=== PATIENT | female | born 2000 | race African-American/Black ===

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

== ENCOUNTER 2019-02-22 06:11 | Emergency (ER) | payer SELFPAY ==
[~2019-02-22] VITALS: Ht 162.6 cm; Wt 65.3 kg
[~2019-02-22 06:11] MED LIST changes: +HYOS0.1264 PO; +METO10TA81 PO
[2019-02-22 06:35] VITALS: BP 118/72
[2019-02-22 07:26] LABS: BILIRUBIN,URINE NEGATIVE (NEG); CLARITY,URINE CLOUDY; COLOR,URINE AMBER; NITRITE,URINE NEGATIVE (NEG); PH,URINE 5.5; PROTEIN,URINE 30 mg/dL (NEG-TRACE); UROBILINOGEN,URINE 0.2 mg/dL (0.2 mg/dL)
[2019-02-22 07:40] LABS: BACTERIA,URINE MODERATE /HPF (0-FEW); SQUAMOUS EPITHELIAL CELL,UR MANY /LPF; WBC,URINE 20-40 /HPF (0-4)
--- NOTE | 2019-02-22 07:50 | PHYS DOC ---
Past Medical History Past Medical History: Asthma Past Surgical History: No Surgical History Additional Information: Denies a smoking Alcohol Use: None Drug Use: Marijuana Adult General Chief Complaint Chief Complaint: BACK PAIN - NO INJURY [facility] HPI Patient is a 18 year old female who presents with complaining of back pain. Patient complaining of sudden onset of bilateral upper abdominal pain with radiation to upper and lower back since yesterday as a constant aching pain with episodes of sharp pain and rated her pain 10 /10. She complaining of subjective fever states she is feeling hot at time of evaluation. Patient denies nausea and vomiting, urinary symptoms, vaginal bleeding or discharge. Patient states her LMP was January 25 and she is not using any contraception. Patient states she took [id number] pain medication without improvement of her pain. Review of Systems Review of Systems Constitutional: Denies chills [] Eyes: Denies change in visual acuity, redness, or eye pain [] HENT: Denies nasal congestion or sore throat [] Respiratory: Denies cough or shortness of breath [] Cardiovascular: No additional information not addressed in HPI [] GI: Denies abdominal pain, nausea, vomiting, bloody stools or diarrhea [] : Denies dysuria or hematuria [] Musculoskeletal: Reports back pain Integument: Denies rash or skin lesions [] Neurologic: Denies headache, focal weakness or sensory changes [] Endocrine: Denies polyuria or polydipsia [] All other systems were reviewed and found to be within normal limits, except as documented in this note. Allergies Allergies Allergies Coded Allergies Type Severity Reaction Last Updated Verified No Known Drug Allergies 10/25/14 No Physical Exam Physical Exam Constitutional: Well developed, well nourished, mild distress, non-toxic appearance. [] HENT: Normocephalic, atraumatic, oropharynx moist. Eyes: PERRLA, EOMI, conjunctiva normal, no discharge. [] Neck: Normal range of motion, no tenderness, supple, no stridor. [] Cardiovascular:Heart rate regular rhythm, no murmur [] Lungs & Thorax: Bilateral breath sounds clear to auscultation [] Abdomen: Bowel sounds normal, soft, no tenderness, no masses, no pulsatile masses. [] Skin: Warm, dry, no erythema, no rash. [] Back: No tenderness, no CVA tenderness. [] Extremities: No tenderness, no cyanosis, no clubbing, ROM intact, no edema. [] Neurologic: Alert and oriented X 3, normal motor function, normal sensory function, no focal deficits noted. [] Psychologic: Affect anxious, judgement normal, mood normal. [] Current Patient Data Vital Signs Vital Signs Date Time Temp Pulse Resp B/P (MAP) Pulse Ox O2 Delivery O2 Flow Rate FiO2 02/22/19 06:35 98.1 99 18 118/72 (87) 99 Room Air 98.1 Lab Values Laboratory Tests Test 02/22/19 06:35 02/22/19 06:45 Urine Collection Type Unknown Urine Color Juliana Urine Clarity Cloudy Urine pH 5.5 Urine Specific [place] >=1.030 Urine Protein 30 mg/dL (NEG-TRACE) Urine Glucose (UA) Negative mg/dL (NEG) Urine Ketones (Stick) 15 mg/dL (NEG) Urine Blood Negative (NEG) Urine Nitrite Negative (NEG) Urine Bilirubin Negative (NEG) Urine Urobilinogen Dipstick 0.2 mg/dL (0.2 mg/dL) Urine Leukocyte Esterase Moderate (NEG) Urine RBC 3-5 /HPF (0-2) Urine WBC 20-40 /HPF (0-4) Urine Squamous Epithelial Cells Many /LPF Urine Bacteria Moderate /HPF (0-FEW) Urine Mucus Marked /LPF POC Urine HCG, Qualitative Hcg positive (Negative) EKG EKG [] Radiology/Procedures Radiology/Procedures [] Course & Med Decision Making Course & Med Decision Making Pertinent Labs reviewed. (See chart for details) Evaluation of patient in ER showed 18-year-old female patient with complaining of upper and lower back pain since yesterday. Patient had unremarkable physical exam except for mild anxiety. Urine test was positive and patient informed about the test result. After having the UA result, I was going to discuss the test result about UTI during but patient was already eloped. Dragon Disclaimer Dragon Disclaimer This electronic medical record was generated, in whole or in part, using a voice recognition dictation system. Departure Departure Impression: Primary Impression: Currently Additional Impressions: UTI (urinary tract infection) during Eloped from emergency department Disposition: 07 AGAINST MEDICAL ADVICE (At 0748) Condition: STABLE Referrals: NO PCP (PCP) Problem Qualifiers CHIQUITA NICOLAS MD Feb 22, 2019 07:50
== END 2019-02-22 07:50 | disposition left against medical advice (07) ==
LOC: ER 06:11
DX: O23.41 Unspecified infection of urinary tract in pregnancy, first trimester (principal); O99.511 Diseases of the respiratory system complicating pregnancy, first trimester; R10.11 Right upper quadrant pain; R10.12 Left upper quadrant pain; Z3A.01 Less than 8 weeks gestation of pregnancy
CPT/HCPCS: 81001; 81025; 87086; 99283

== ENCOUNTER 2019-03-04 07:08 | Emergency (ER) | payer OTHER ==
[~2019-03-04] VITALS: Ht 162.6 cm; Wt 65.3 kg
[2019-03-04] VITALS (10 sets, daily range): BP systolic 97–116; BP diastolic 48–78
[2019-03-04 07:45] LABS: BASO % 1 % (0-3); EOS # 0.3 x10^3/uL (0.0-0.7); EOS % 4 % (0-3); HEMATOCRIT 34.8 % (36.0-47.0); HEMOGLOBIN 11.6 g/dL (12.0-15.5); LYMPH # 2.6 x10^3/uL (1.0-4.8); LYMPH % 34 % (24-48); MEAN CORPUSCULAR HEMOGLOBIN 31 pg (25-35); MEAN CORPUSCULAR HGB CONC 33 g/dL (31-37); MEAN CORPUSCULAR VOLUME 94 fL (79-100); MONO # 0.4 x10^3/uL (0.0-1.1); MONO % 6 % (0-9); NEUT # 4.3 x10^3uL (1.8-7.7); NEUT % 57 % (31-73); PLATELET COUNT 237 x10^3/uL (140-400); RED BLOOD COUNT 3.71 x10^6/uL (3.50-5.40); RED CELL DISTRIBUTION WIDTH 13.6 % (11.5-14.5); WHITE BLOOD COUNT 7.6 x10^3/uL (4.0-11.0)
--- NOTE | 2019-03-04 07:45 | PHYS DOC ---
Past Medical History Past Medical History: Asthma Past Surgical History: No Surgical History Alcohol Use: None Drug Use: Marijuana Adult General Chief Complaint Chief Complaint: ABDOMINAL PAIN IN HPI HPI 18-year-old female who is 5 weeks by last menstrual period presenting to the emergency department today with abdominal pain and . Her pain is a sharp shooting pain in the suprapubic region that is nonradiating intermittent and without alleviating factors. She was seen previously here in the emergency department where she had positive leuk esterase negative nitrites presumably at that time a UTI however unfortunately eloped and did not get antibiotic therapy. Her urine was cultured at that time which showed mixed urogenital species without a defined UTI. Review of systems is negative for chest pain shortness of breath. She's had mild nausea without vomiting. She had one episode of spotting within the past 24 hours. All other review of systems is negative unless otherwise noted in history of present illness. ED course: 18-year-old female presenting the emergency department today with abdominal pain with spotting in . Review of Systems Review of Systems SEE ABOVE. Allergies Allergies Allergies Coded Allergies Type Severity Reaction Last Updated Verified No Known Drug Allergies 10/25/14 No Physical Exam Physical Exam SEE ABOVE Constitutional: Well developed, well nourished, no acute distress, non-toxic appearance. HENT: Normocephalic, atraumatic, bilateral external ears normal, oropharynx moist, no oral exudates, nose normal. [] Eyes: PERRLA, EOMI, conjunctiva normal, no discharge. Neck: Normal range of motion, no tenderness, supple, no stridor. [] Cardiovascular:Heart rate regular rhythm, no murmur Lungs & Thorax: Bilateral breath sounds clear to auscultation [] Abdomen: Bowel sounds normal, soft, mild ttp in the suprapubic region. neg mcburneys point. neg murphys sign. no masses, no pulsatile masses. [] Skin: Warm, dry, no erythema, no rash. Back: No tenderness, no CVA tenderness. [] Extremities: No tenderness, no cyanosis, no clubbing, ROM intact, no edema. Neurologic: Alert and oriented X 3, normal motor function, normal sensory function, no focal deficits noted. [] Psychologic: Affect normal, judgement normal, mood normal. [] EKG EKG [] Radiology/Procedures Radiology/Procedures [] Course & Med Decision Making Course & Med Decision Making Pertinent Labs and Imaging studies reviewed. (See chart for details) [] Dragon Disclaimer Dragon Disclaimer This electronic medical record was generated, in whole or in part, using a voice recognition dictation system. Departure Departure Impression: Primary Impression: Abdominal pain affecting Referrals: NO PCP (PCP) FILEMON PALENCIA MD Mar 04, 2019 07:45
[2019-03-04 07:53] LABS: CALCIUM 8.7 mg/dL (8.5-10.1); CREATININE 0.9 mg/dL (0.6-1.0); GFR 97.6; POTASSIUM 3.3 mmol/L (3.5-5.1)
[2019-03-04 08:09] LABS: ALBUMIN 3.5 g/dL (3.4-5.0); DIRECT BILIRUBIN 0.1 mg/dL (0.0-0.2); TOTAL BILIRUBIN 0.3 mg/dL (0.2-1.0); TOTAL PROTEIN 6.7 g/dL (6.4-8.2)
--- NOTE | 2019-03-04 09:11 | RAD ---
Obstetrical ultrasound, 03/04/2019: HISTORY: , abdominal pain Transabdominal and transvaginal scans were obtained. The transabdominal scans are of limited value due to lack of bladder distention. The transvaginal scans demonstrate and elongated fluid collection in the central uterine cavity demonstrating a weakly echogenic rim. It measures 8 mm in mean diameter suggesting a gestational age of 5-6 weeks. No pole or yolk sac is seen within this structure. There is an adjacent small hypoechoic structure compatible with a small subchorionic hemorrhage. The ovaries are of normal size. A 1.9 cm slightly hypoechoic structure in the right ovary most likely represents a hemorrhagic cyst. The adnexal regions are otherwise unremarkable. No free fluid is evident in the pelvis. IMPRESSION: 1. Small fluid collections in the central uterine cavity, one of which is probably a gestational sac. It is elongated with a weekly echogenic rim raising questions as to its viability. The other small fluid collection is compatible with a small subchorionic hemorrhage. Correlation with serial hCG titers and sonographic follow-up is suggested in establishing viability of this . 2. Small right ovarian nodule, likely a hemorrhagic cyst. Electronically signed by: Cooper Cheung MD (03/04/2019 9:08 AM) [facility]
[2019-03-04 09:22] LABS: CLARITY,URINE CLOUDY; COLOR,URINE AMBER
[2019-03-04 09:23] LABS: BILIRUBIN,URINE SMALL (NEG)
[2019-03-04 09:26] LABS: NITRITE,URINE NEGATIVE (NEG)
[2019-03-04 09:29] LABS: PROTEIN,URINE 30 mg/dL (NEG-TRACE)
[2019-03-04] MEDS ORDERED: IV NORMAL SALINE 1000ML BAG 1,000 ML IV SCH (09:29)
[2019-03-04] MEDS ORDERED: MORPHINE SULFATE 2 MG/ML VIAL. IV PRN ×2 (09:30→11:00)
[2019-03-04] MEDS ORDERED: ONDANSETRON PF 4 MG/2 ML VIAL. IV PRN ×3 (09:30→12:30)
[2019-03-04] MEDS ORDERED: SURGICEL HEMOSTAT 4X8 EACH. ONE (10:15)
[2019-03-04] MEDS ORDERED: BUPIVACAINE-EPI 0.25%-1:200000 MPF 30 ML VIAL. ONE (10:15)
[2019-03-04] MEDS ORDERED: IV RINGERS,LACTATED 1000ML 1,000 ML IV SCH (10:56)
[2019-03-04] MEDS ORDERED: fentaNYL PF VIAL 100 MCG/2 ML VIAL IV PRN ×2 (11:00)
[2019-03-04] MEDS ORDERED: PROCHLORPERAZINE 10 MG/2 ML VIAL. IV PRN ×2 (11:00→12:30)
[2019-03-04] MEDS ORDERED: LIDOCAINE 1% PF 2 ML VIAL. ID PRN (11:00)
[2019-03-04] MEDS ORDERED: HYDROmorphone 2 MG/ML VIAL IV PRN (11:00)
[2019-03-04] MEDS ORDERED: PROPOFOL 20 ML IV ONE (11:05)
[2019-03-04] MEDS ORDERED: DEXAMETHASONE SOD PHOS 20 MG/5 ML VIAL. ONE (11:05)
[2019-03-04] MEDS ORDERED: FAMOTIDINE 20 MG/2 ML VIAL ONE (11:05)
[2019-03-04] MEDS ORDERED: LIDOCAINE 2% PF 5 ML VIAL. ONE (11:05)
[2019-03-04] MEDS ORDERED: ONDANSETRON PF 4 MG/2 ML VIAL. ONE (11:05)
[2019-03-04] MEDS ORDERED: MIDAZOLAM HCL/PF 2 MG/2 ML VIAL. ONE (11:07)
[2019-03-04] MEDS ORDERED: fentaNYL PF VIAL 100 MCG/2 ML VIAL ONE (11:07)
[2019-03-04] MEDS ORDERED: SUCCINYLCHOLINE 200 MG/10 ML VIAL. ONE (11:07)
[2019-03-04] MEDS ORDERED: ROCURONIUM 50 MG/5 ML VIAL. ONE (11:08)
[2019-03-04] MEDS ORDERED: 0.9 % SODIUM CHLORIDE 20 ML VIAL. IJ ONE (11:44)
[2019-03-04] MEDS ORDERED: ceFAZolin SODIUM 1 GM VIAL ONE (11:44)
[2019-03-04] MEDS ORDERED: KETOROLAC 30 MG/ML INJ FOR OR. INJ ONE (12:11)
[2019-03-04] MEDS ORDERED: NEOSTIGMINE METHYLSULFATE 5 MG/5 ML SYRINGE. ONE (12:12)
[2019-03-04] MEDS ORDERED: GLYCOPYRROLATE 1 MG/5 ML VIAL. ONE (12:12)
[2019-03-04] MEDS ORDERED: SEVOFLURANE 61 TO 120 MINUTES. IH ONE (12:14)
[2019-03-04] MEDS ORDERED: BUPIVACAINE-EPI 0.25%-1:200000 MPF 30 ML VIAL. IJ ONE (12:15)
--- NOTE | 2019-03-04 12:23 | PDOC ---
BRIEF OPERATIVE NOTE Date: Mar 04, 2019 Pre-Op Diagnosis Abd pain and ectopic Post-Op Diagnosis SAme Procedure Performed Dx [facility] Surgeon Dr. Daniels Anesthesia Type: General Blood Loss less than 5 ml Specimens Obtained none Findings enlarged uterus, ROV cyst 3 cm size; nml fallopian tubes carlos., nml MADELEINE; nml appendix and nml gallbladder; Complications none Operative Note see dictation YULISA DANIELS Jr, MD Mar 04, 2019 12:23
[2019-03-04] MEDS ORDERED: diphenhydrAMINE 50 MG/ML VIAL IV PRN (12:30)
[2019-03-04] MEDS ORDERED: ZOLPIDEM 5 MG TABLET. PO PRN (12:30)
[2019-03-04] MEDS ORDERED: KETOROLAC 30 MG/ML VIAL. IV PRN (12:30)
[2019-03-04] MEDS ORDERED: CALCIUM CARBONATE 500 MG TAB.CHEW PO PRN (12:30)
[2019-03-04] MEDS ORDERED: 0.9 % SODIUM CHLORIDE 10 ML DISP.SYRIN. IV PRN (12:30)
[2019-03-04] MEDS ORDERED: DEXTROSE 50% 25 GM / 50ML DISP.SYRIN. IV PRN (12:30)
[2019-03-04] MEDS ORDERED: diphenhydrAMINE HCL 25 MG CAPSULE PO PRN (12:30)
--- NOTE | 2019-03-04 12:47 | PDOC1 ---
History and Physical Date of Admission Date of Admission DATE: 03/04/19 TIME: 12:40 Identification/Chief Complaint Chief Complaint Abd pain Source Source: Patient History of Present Illness History of Present Illness 18 y/o @ 6 wks with increasing RLQ pain since this am. Today's HCG 8, 600. Sono indicated Right adnexal nodule with free fluid in pelvis. Pt.'s clinical exam indicated ectopic . Past Surgical History Past Surgical History: No pertinent history Current Problem List Problem List Problems Medical Problems: (1) Abdominal pain affecting Status: Acute Current Medications Current Medications Current Medications Ondansetron HCl (Zofran) 4 mg PRN Q8HRS PRN IV NAUSEA/VOMITING Last administered on 03/04/19at 10:10; Start 03/04/19 at 09:30; Stop 03/05/19 at 09:29 Morphine Sulfate (Morphine Sulfate) 2 mg PRN Q2HR PRN IV PAIN Last administered on 03/04/19at 10:10; Start 03/04/19 at 09:30; Stop 03/05/19 at 09:29 Sodium Chloride 1,000 ml @ 125 mls/hr Q8H IV Last administered on 03/04/19at 10 :10; Start 03/04/19 at 09:29; Stop 03/05/19 at 09:28 Ondansetron HCl (Zofran) 4 mg PRN Q6HRS PRN IV NAUSEA/VOMITING; Start 03/04/19 at 11:00; Stop 03/04/19 at 20:00 Fentanyl Citrate (Fentanyl 2ml Vial) 25 mcg PRN Q5MIN PRN IV MILD PAIN; Start 03/04/19 at 11:00; Stop 03/04/19 at 20:00 Fentanyl Citrate (Fentanyl 2ml Vial) 50 mcg PRN Q5MIN PRN IV MODERATE TO SEVERE PAIN; Start 03/04/19 at 11:00; Stop 03/04/19 at 20:00 Morphine Sulfate (Morphine Sulfate) 1 mg PRN Q10MIN PRN IV SEVERE PAIN; Start 03/04/19 at 11:00; Stop 03/04/19 at 20:00 Ringer's Solution 1,000 ml @ 30 mls/hr Q24H IV ; Start 03/04/19 at 10:56; Stop 03/04/19 at 22:55 Lidocaine HCl (Xylocaine-Mpf 1% 2ml Vial) 2 ml PRN 1X PRN ID PRIOR TO IV START ; Start 03/04/19 at 11:00; Stop 03/04/19 at 20:00 Hydromorphone HCl (Dilaudid) 0.5 mg PRN Q10MIN PRN IV SEV PAIN, Second choice; Start 03/04/19 at 11:00; Stop 03/04/19 at 20:00 Prochlorperazine Edisylate (Compazine) 5 mg PACU PRN PRN IV NAUSEA, MRX1; Start 03/04/19 at 11:00; Stop 03/04/19 at 20:00 Ondansetron HCl (Zofran) 4 mg STK-MED ONCE .ROUTE ; Start 03/04/19 at 11:05; Stop 03/04/19 at 11:06; Status DC Propofol 20 ml @ As Directed STK-MED ONCE IV ; Start 03/04/19 at 11:05; Stop at 11:06; Status DC Dexamethasone Sodium Phosphate (Decadron) 20 mg STK-MED ONCE .ROUTE ; Start at 11:05; Stop 03/04/19 at 11:06; Status DC Lidocaine HCl (Lidocaine Pf 2% Vial) 5 ml STK-MED ONCE .ROUTE ; Start 03/04/19 at 11:05; Stop 03/04/19 at 11:06; Status DC Famotidine (Pepcid Vial) 20 mg STK-MED ONCE .ROUTE ; Start 03/04/19 at 11:05; Stop 03/04/19 at 11:06; Status DC Midazolam HCl (Versed) 2 mg STK-MED ONCE .ROUTE ; Start 03/04/19 at 11:07; Stop 03/04/19 at 11:08; Status DC Fentanyl Citrate (Fentanyl 2ml Vial) 100 mcg STK-MED ONCE .ROUTE ; Start at 11:07; Stop 03/04/19 at 11:08; Status DC Succinylcholine Chloride (Anectine) 200 mg STK-MED ONCE .ROUTE ; Start 03/04/19 at 11:07; Stop 03/04/19 at 11:08; Status DC Rocuronium [place] (Zemuron) 50 mg STK-MED ONCE .ROUTE ; Start 03/04/19 at 11:08 ; Stop 4/19/19 at 11:09; Status DC Cellulose (Surgicel Hemostat 4x8) 1 each STK-MED ONCE .ROUTE ; Start 03/04/19 at 10:15; Stop 03/04/19 at 11:15; Status DC Bupivacaine HCl/ Epinephrine Bitart (Sensorcaine-Epi 0.25%-1:051227 Mpf) 30 ml STK-MED ONCE .ROUTE ; Start 03/04/19 at 10:15; Stop 03/04/19 at 11:16; Status DC Cefazolin Sodium (Ancef) 1 gm STK-MED ONCE .ROUTE ; Start 03/04/19 at 11:44; Stop 03/04/19 at 11:45; Status DC Sodium Chloride (SODIUM CHLORIDE 20ml) 20 ml STK-MED ONCE IJ ; Start 03/04/19 at 11:44; Stop 03/04/19 at 11:45; Status DC Ketorolac Tromethamine (Toradol For Or Only) 30 mg STK-MED ONCE INJ ; Start at 12:11; Stop 03/04/19 at 12:12; Status DC Glycopyrrolate (Robinul) 1 mg STK-MED ONCE .ROUTE ; Start 03/04/19 at 12:12; Stop 03/04/19 at 12:13; Status DC Neostigmine Methylsulfate (Neostigmine Methylsulfate) 5 mg STK-MED ONCE .ROUTE ; Start 03/04/19 at 12:12; Stop 03/04/19 at 12:13; Status DC Sevoflurane (Ultane) 60 ml STK-MED ONCE IH ; Start 03/04/19 at 12:14; Stop 03/04 at 12:15; Status DC Calcium Carbonate/ Glycine (Tums) 500 mg PRN Q3HRS PRN PO HEARTBURN / GAS; Start 03/04/19 at 12:30 Simethicone (Gas-X) 80 mg PRN AFTMEALHC PRN PO GAS / BLOATING; Start 03/04/19 at 12:30 Zolpidem Tartrate (Ambien) 5 mg PRN QHS PRN PO INSOMNIA, MAY REPEAT IN 1HR; Start 03/04/19 at 12:30 Diphenhydramine HCl (Benadryl) 25 mg PRN Q6HRS PRN PO ITCHING; Start 03/04/19 at 12:30 Diphenhydramine HCl (Benadryl) 25 mg PRN Q6HRS PRN IV ITCHING; Start 03/04/19 at 12:30 Sodium Chloride (Normal Saline Flush) 3 ml QSHIFT PRN IV AFTER MEDS AND BLOOD DRAWS; Start 03/04/19 at 12:30 Dextrose (Dextrose 50%-Water Syringe) 12.5 gm PRN Q15MIN PRN IV SEE COMMENTS; Start 03/04/19 at 12:30 Oxycodone/ Acetaminophen (Percocet 5/325) 2 tab PRN Q4HRS PRN PO MODERATE PAIN , SEVERE PAIN; Start 03/04/19 at 12:30 Ketorolac Tromethamine (Toradol 30mg Vial) 30 mg PRN Q6HRS PRN IV PAIN; Start 03/04/19 at 12:30; Stop 03/09/19 at 12:29 Gabapentin (Neurontin) 600 mg Q8HRS PO ; Start 03/04/19 at 14:00 Ondansetron HCl (Zofran) 4 mg PRN Q6HRS PRN IV NAUESA, 1ST CHOICE; Start at 12:30 Prochlorperazine Edisylate (Compazine) 5 mg PRN Q6HRS PRN IV N/V, 2nd Choice, MR X1; Start 03/04/19 at 12:30 Active Scripts Active Reglan (Metoclopramide Hcl) 10 Mg Tablet 10 Mg PO QIDACHS Levsin (Hyoscyamine Sulfate) 0.125 Mg Tablet 0.125 Mg PO QID Diclofenac Sodium 50 Mg Tablet.dr 1 Tab PO BID Ibuprofen 800 Mg Tablet 800 Mg PO PRN Q6HRS PRN Prednisone 50 Mg Tablet 1 Tab PO DAILY Amoxicillin 875 Mg Tablet 1 Tab PO BID Tramadol Hcl 50 Mg Tablet 50 Mg PO Q6HRS PRN Cyclobenzaprine Hcl 5 Mg Tablet 1 Tab PO QHS Ibuprofen 800 Mg Tablet 800 Mg PO PRN Q6HRS PRN Lidocaine Hcl Viscous (Lidocaine Hcl) 20 Mg/1 Ml Solution 5 Ml PO TID Amoxicillin 875 Mg Tablet 1 Tab PO BID Cyclobenzaprine Hcl 5 Mg Tablet 1 Tab PO QHS Proair Respiclick (Albuterol Sulfate) 90 Mcg Aer.pow.ba 1 Puff IH PRN Q6HRS PRN Ibuprofen 800 Mg Tablet 800 Mg PO PRN Q6HRS PRN Reported Ventolin Hfa Inhaler (Albuterol Sulfate) 18 Gm Hfa.aer.ad 2 Puff IH PRN Q4-6HRS Allergies Allergies: Coded Allergies: No Known Drug Allergies (Unverified , 10/25/14) ROS General: YES: Appetite; No: Chills, Night Sweats, Fatigue, Malaise, Other PSYCHOLOGICAL ROS: YES: Anxiety; No: Behavioral Disorder, Concentration difficultie, Decreased libido, Depression, Disorientation, Hallucinations, Hostility, Irritablity, Memory difficulties, Mood Swings, Obsessive thoughts, Physical abuse, Sexual abuse, Sleep disturbances, Suicidal ideation, Other Eyes: No Blurry vision, No Decreased vision, No Double vision, No Dry eyes, No Excessive tearing, No Eye Pain, No Itchy Eyes, No Loss of vision, No Photophobia , No Scotomata, No Uses contacts, No Uses glasses, No Other HEENT: No: Heacaches, Visual Changes, Hearing change, Nasal congestion, Nasal discharge, Oral lesions, Sinus pain, Sore Throat, Epistaxis, Sneezing, Snoring, Tinnitus, Vertigo, Vocal changes, Other ALLERGY AND IMMUNOLOGY: No: Hives, Insect Bite Sensitivity, Itchy/Watery Eyes, Nasal Congestion, Post Nasal Drip, Seasonal Allergies, Other Hematological and Lymphatic: No: Bleeding Problems, Blood Clots, Blood Transfusions, Brusing, Night Sweats, Pallor, Swollen Lymph Nodes, Other ENDOCRINE: No: Breast Changes, Galactorrhea, Hair Pattern Changes, Hot Flashes , Malaise/lethargy, Mood Swings, Palpitations, Polydipsia/polyuria, Skin Changes , Temperature Intolerance, Unexpected Weight Changes, Other Breast: No New/Changing Breast Lumps, No Nipple changes, No Nipple discharge, No Other Respiratory: No: Cough, Hemoptysis, Orthopnea, Pleuritic Pain, Shortness of breath, SOB with excertion, Sputum Changes, Stridor, Tachypnea, Wheezing, Other Cardiovascular: No Chest Pain, No Palpitations, No Orthopnea, No Paroxysmal Noc. Dyspnea, No Edema, No Lt Headedness, No Other Gastrointestinal: Yes Nausea, Yes Abdominal Pain Neurological: No Behavorial Changes, No Bowel/Bladder ControlChng, No Confusion , No Dizziness, No Gait Disturbance, No Headaches, No Impaired Coord/balance, No Memory Loss, No Numbness/Tingling, No Seizures, No Speech Problems, No Tremors, No Visual Changes, No Weakness, No Other Physical Exam General: Alert, Oriented X3, Cooperative HEENT: Atraumatic Heart: S1S2 Breasts: Normal Abdomen: Soft Vitals Vitals Vital Signs Date Time Temp Pulse Resp B/P (MAP) Pulse Ox O2 Delivery O2 Flow Rate FiO2 03/04/19 11:22 97.3 65 20 102/58 99 Room Air 97.3 Labs Labs Laboratory Tests Test 03/04/19 07:33 03/04/19 07:35 White Blood Count 7.6 x10^3/uL (4.0-11.0) Red Blood Count 3.71 x10^6/uL (3.50-5.40) Hemoglobin 11.6 g/dL (12.0-15.5) Hematocrit 34.8 % (36.0-47.0) Mean Corpuscular Volume 94 fL (79-100) Mean Corpuscular Hemoglobin 31 pg (25-35) Mean Corpuscular Hemoglobin Concent 33 g/dL (31-37) Red Cell Distribution Width 13.6 % (11.5-14.5) Platelet Count 237 x10^3/uL (140-400) Neutrophils (%) (Auto) 57 % (31-73) Lymphocytes (%) (Auto) 34 % (24-48) Monocytes (%) (Auto) 6 % (0-9) Eosinophils (%) (Auto) 4 % (0-3) Basophils (%) (Auto) 1 % (0-3) Neutrophils # (Auto) 4.3 x10^3uL (1.8-7.7) Lymphocytes # (Auto) 2.6 x10^3/uL (1.0-4.8) Monocytes # (Auto) 0.4 x10^3/uL (0.0-1.1) Eosinophils # (Auto) 0.3 x10^3/uL (0.0-0.7) Basophils # (Auto) 0.0 x10^3/uL (0.0-0.2) Maternal Serum HCG Beta Subunit 8695 mIU/mL (0-5) Sodium Level 139 mmol/L (136-145) Potassium Level 3.3 mmol/L (3.5-5.1) Chloride Level 104 mmol/L (98-107) Carbon Dioxide Level 24 mmol/L (21-32) Anion Gap 11 (6-14) Blood Urea Nitrogen 11 mg/dL (7-20) Creatinine 0.9 mg/dL (0.6-1.0) Estimated GFR (Cockcroft-Gault) 97.6 Glucose Level 106 mg/dL (70-99) Calcium Level 8.7 mg/dL (8.5-10.1) Total Bilirubin 0.3 mg/dL (0.2-1.0) Direct Bilirubin 0.1 mg/dL (0.0-0.2) Aspartate Amino Transf (AST/SGOT) 17 U/L (15-37) Alanine Aminotransferase (ALT/SGPT) 18 U/L (14-59) Alkaline Phosphatase 50 U/L (46-116) Total Protein 6.7 g/dL (6.4-8.2) Albumin 3.5 g/dL (3.4-5.0) Lipase 158 U/L (73-393) Urine Collection Type Unknown Urine Color Juliana Urine Clarity Cloudy Urine pH 6.0 Urine Specific [place] >=1.030 Urine Protein 30 mg/dL (NEG-TRACE) Urine Glucose (UA) Negative mg/dL (NEG) Urine Ketones (Stick) Trace mg/dL (NEG) Urine Blood Negative (NEG) Urine Nitrite Negative (NEG) Urine Bilirubin Small (NEG) Urine Urobilinogen Dipstick 1.0 mg/dL (0.2 mg/dL) Urine Leukocyte Esterase Moderate (NEG) Laboratory Tests Test 03/04/19 07:33 03/04/19 07:35 White Blood Count 7.6 x10^3/uL (4.0-11.0) Red Blood Count 3.71 x10^6/uL (3.50-5.40) Hemoglobin 11.6 g/dL (12.0-15.5) Hematocrit 34.8 % (36.0-47.0) Mean Corpuscular Volume 94 fL (79-100) Mean Corpuscular Hemoglobin 31 pg (25-35) Mean Corpuscular Hemoglobin Concent 33 g/dL (31-37) Red Cell Distribution Width 13.6 % (11.5-14.5) Platelet Count 237 x10^3/uL (140-400) Neutrophils (%) (Auto) 57 % (31-73) Lymphocytes (%) (Auto) 34 % (24-48) Monocytes (%) (Auto) 6 % (0-9) Eosinophils (%) (Auto) 4 % (0-3) Basophils (%) (Auto) 1 % (0-3) Neutrophils # (Auto) 4.3 x10^3uL (1.8-7.7) Lymphocytes # (Auto) 2.6 x10^3/uL (1.0-4.8) Monocytes # (Auto) 0.4 x10^3/uL (0.0-1.1) Eosinophils # (Auto) 0.3 x10^3/uL (0.0-0.7) Basophils # (Auto) 0.0 x10^3/uL (0.0-0.2) Maternal Serum HCG Beta Subunit 8695 mIU/mL (0-5) Sodium Level 139 mmol/L (136-145) Potassium Level 3.3 mmol/L (3.5-5.1) Chloride Level 104 mmol/L (98-107) Carbon Dioxide Level 24 mmol/L (21-32) Anion Gap 11 (6-14) Blood Urea Nitrogen 11 mg/dL (7-20) Creatinine 0.9 mg/dL (0.6-1.0) Estimated GFR (Cockcroft-Gault) 97.6 Glucose Level 106 mg/dL (70-99) Calcium Level 8.7 mg/dL (8.5-10.1) Total Bilirubin 0.3 mg/dL (0.2-1.0) Direct Bilirubin 0.1 mg/dL (0.0-0.2) Aspartate Amino Transf (AST/SGOT) 17 U/L (15-37) Alanine Aminotransferase (ALT/SGPT) 18 U/L (14-59) Alkaline Phosphatase 50 U/L (46-116) Total Protein 6.7 g/dL (6.4-8.2) Albumin 3.5 g/dL (3.4-5.0) Lipase 158 U/L (73-393) Urine Collection Type Unknown Urine Color Juliana Urine Clarity Cloudy Urine pH 6.0 Urine Specific [place] >=1.030 Urine Protein 30 mg/dL (NEG-TRACE) Urine Glucose (UA) Negative mg/dL (NEG) Urine Ketones (Stick) Trace mg/dL (NEG) Urine Blood Negative (NEG) Urine Nitrite Negative (NEG) Urine Bilirubin Small (NEG) Urine Urobilinogen Dipstick 1.0 mg/dL (0.2 mg/dL) Urine Leukocyte Esterase Moderate (NEG) VTE Prophylaxis Ordered VTE Prophylaxis Devices: No VTE Pharmacological Prophylaxi: No Assessment/Plan Assessment/Plan A: 6 wks blighted ovum vs. early gestation P: Observation and pain management. REpeat HCG in 2 days and repeat sono at that time. YULISA POSADAS Jr, MD Mar 04, 2019 12:47
--- NOTE | 2019-03-04 14:20 | OP ---
DATE OF SURGERY: PREOPERATIVE DIAGNOSES: Abdominal pain and ectopic . POSTOPERATIVE DIAGNOSES: Abdominal pain and ectopic . PROCEDURE: Diagnostic laparoscopy. SURGEON: Santi Daniels MD ANESTHESIA: GETA. ESTIMATED BLOOD LOSS: Less than 5 mL. COMPLICATIONS: None. FINDINGS: Enlarged uterus, right ovarian cyst about 3 cm size, normal fallopian tubes bilaterally, normal left ovary, normal appendix, normal gallbladder. SUMMARY: A 18-year-old 2, para 1 at about 6 weeks gestation, presented to the Emergency Department with increasing right lower quadrant pain and nausea. The patient was found to have positive test with hCG level of 8600. Sonogram indicated no pole in the uterine cavity and the sono also indicated right nodule with fluid in the abdomen. Due to the patient's clinical picture with rebound tenderness and worsening pain, the suspicion was for ectopic . The patient was counseled on the risks, benefits and expectations of laparoscopic removal of ectopic and voiced a clear understanding to proceed. DESCRIPTION OF PROCEDURE: The patient was taken to surgery suite and placed in dorsal lithotomy position. She was prepped with Betadine solution for vaginal prep and ChloraPrep for abdominal prep. After adequate anesthesia, bivalve speculum was placed vaginally. Anterior lip of the cervix was grasped with a single tooth tenaculum. The uterine acorn manipulator was then placed. The bivalve speculum was removed. Attention was now placed on the abdomen. A small transverse skin incision was made just below the umbilicus with a scalpel. The Veress needle was then placed through the infraumbilical incision site. The abdomen was allowed to insufflate up to 1-1/2 liters CO2 gas. The Veress needle was then removed. A 5 mm trocar was placed. The camera was positioned. Uterus was enlarged. The fallopian tubes appeared normal bilaterally. Left ovary was normal. Right ovary demonstrated about 3 cm size cyst. There is no evidence of ectopic in the tube, ovary or abdominal cavity at this time. Appendix and gallbladder appeared normal as well. There was no evidence of endometriosis or adhesions. Suction irrigation was utilized. Small amount of normal saline was left in the posterior cul-de-sac. The trocars were then removed under direct visualization. The gas was allowed to deflate as much as possible along with mechanical manipulation. The two skin incisions were reapproximated using 4-0 Vicryl suture in subcuticular manner and 0.25% Marcaine with epinephrine was injected at each incision site. Uterine acorn manipulator and single tooth tenaculum were then removed. The patient tolerated the procedure well and was sent to the recovery room in stable condition. Sponge and needle count correct x 3. SANTI DANIELS MD DR: PADMINI/alexis JOB#: [id number] / [id number]
[2019-03-04] MEDS: SIMETHICONE 80 MG TAB.CHEW PO PRN (18:07)
[2019-03-04] MEDS: GABAPENTIN 300 MG CAPSULE. PO SCH ×2 (18:07→21:30)
[2019-03-04] MEDS ORDERED: IBUPROFEN 400 MG TABLET. PO PRN (19:00)
[2019-03-04] MEDS: oxyCODONE/APAP 5/325 1 TAB TABLET PO PRN ×2 (20:20→21:32)
[2019-03-05] MEDS: GABAPENTIN 300 MG CAPSULE. PO SCH ×2 (06:05→13:59)
[2019-03-05 07:17] LABS: BASO % 0 % (0-3); EOS % 0 % (0-3); HEMATOCRIT 34.4 % (36.0-47.0); HEMOGLOBIN 11.3 g/dL (12.0-15.5); LYMPH % 14 % (24-48); MEAN CORPUSCULAR HEMOGLOBIN 31 pg (25-35); MEAN CORPUSCULAR HGB CONC 33 g/dL (31-37); MEAN CORPUSCULAR VOLUME 94 fL (79-100); MONO # 0.6 x10^3/uL (0.0-1.1); MONO % 4 % (0-9); NEUT # 11.4 x10^3uL (1.8-7.7); NEUT % 81 % (31-73); PLATELET COUNT 263 x10^3/uL (140-400); RED BLOOD COUNT 3.68 x10^6/uL (3.50-5.40); RED CELL DISTRIBUTION WIDTH 13.6 % (11.5-14.5)
[2019-03-05 07:22] LABS: CALCIUM 9.3 mg/dL (8.5-10.1); CREATININE 0.7 mg/dL (0.6-1.0); GFR 130.4; POTASSIUM 3.4 mmol/L (3.5-5.1)
[2019-03-05] MEDS: oxyCODONE/APAP 5/325 1 TAB TABLET PO PRN (08:26)
[2019-03-05] MEDS: SIMETHICONE 80 MG TAB.CHEW PO PRN (08:26)
[2019-03-05 11:00] VITALS: BP 94/55
[2019-03-05 14:25] VITALS: BP 101/48
--- NOTE | 2019-03-05 14:28 | NUR ---
Reviewed discharge instructions with pt. Pt verbalized understanding of discharge instructions.
--- NOTE | 2019-03-05 15:00 | NUR ---
Pt home with family. No s/sx of distress noted.
== END 2019-03-05 15:07 | disposition home or self-care (01) ==
LOC: ER 07:08 → 3 NORTH 09:47
PROVIDERS: ADMIT Obstetrics & Gynecology; ATTEND Obstetrics & Gynecology
DX: O00.90 Unspecified ectopic pregnancy without intrauterine pregnancy (principal); O26.851 Spotting complicating pregnancy, first trimester; R10.31 Right lower quadrant pain; O99.511 Diseases of the respiratory system complicating pregnancy, first trimester; O34.81 Maternal care for other abnormalities of pelvic organs, first trimester; N83.201 Unspecified ovarian cyst, right side; J45.909 Unspecified asthma, uncomplicated; N85.2 Hypertrophy of uterus; Z3A.01 Less than 8 weeks gestation of pregnancy
CPT/HCPCS: 36415; 76801; 80048; 80076; 81003; 83690; 84702; 85025; 86900; 86901; 96374; 96375; 99285; A7015; G0378; G0379; J0330; J0690; J1100; J1885; J2001; J2250; J2270; J2405; J2704; J2710; J3010; J3490; J7030

== ENCOUNTER 2019-03-23 01:55 | Emergency (ER) | payer OTHER ==
[~2019-03-23] VITALS: Ht 162.6 cm; Wt 63.5 kg
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
[2019-03-23] MEDS ORDERED: LORazepam 1 MG TABLET PO ONE (02:45)
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
[2019-03-23 05:00] VITALS: BP 128/66
== END 2019-03-23 05:04 | disposition home or self-care (01) ==
LOC: ER 01:55
DX: O99.89 Other specified diseases and conditions complicating pregnancy, childbirth and the puerperium (principal); S16.1XXA Strain of muscle, fascia and tendon at neck level, initial encounter; S00.03XA Contusion of scalp, initial encounter; O99.511 Diseases of the respiratory system complicating pregnancy, first trimester; J45.909 Unspecified asthma, uncomplicated; Z3A.08 8 weeks gestation of pregnancy; X96.8XXA Assault by other specified explosive, initial encounter; Y93.89 Activity, other specified; Y92.038 Other place in apartment as the place of occurrence of the external cause; Y99.8 Other external cause status
CPT/HCPCS: 70450; 72125; 99284-25

== ENCOUNTER 2019-08-13 06:42 | Observation (INO) | payer OTHER ==
[2019-08-13] MEDS ORDERED: IV RINGERS,LACTATED 1000ML 1,000 ML IV SCH (07:00)
[2019-08-13 07:52] LABS: BILIRUBIN,URINE NEGATIVE (NEG); CLARITY,URINE CLEAR; COLOR,URINE YELLOW; NITRITE,URINE NEGATIVE (NEG); PH,URINE 5.5; PROTEIN,URINE NEGATIVE (NEG-TRACE); UROBILINOGEN,URINE 0.2 mg/dL (0.2 mg/dL)
[2019-08-13 08:05] LABS: BACTERIA,URINE MANY /HPF (0-FEW); RBC,URINE OCC /HPF (0-2); SQUAMOUS EPITHELIAL CELL,UR MANY /LPF
[2019-08-13 08:09] LABS: BARBITURATES NEG (NEG); BENZODIAZEPINES NEG (NEG); CANNABINOIDS POS (NEG); COCAINE NEG (NEG); METHADONE NEG (NEG); OPIATES NEG (NEG); PHENCYCLIDINE NEG (NEG)
[2019-08-13 08:11] LABS: AMPHETAMINE/METHAMPHETAMINE NEG (NEG)
== END 2019-08-13 09:10 | disposition home or self-care (01) ==
LOC: 3 SO LND 06:42
PROVIDERS: ADMIT Obstetrics & Gynecology; ATTEND Obstetrics & Gynecology
DX: O62.9 Abnormality of forces of labor, unspecified (principal); Z3A.28 28 weeks gestation of pregnancy
CPT/HCPCS: 80307; 81001; 87086; G0378; G0379